=== PATIENT | female | born 1975 ===

== ENCOUNTER 2022-09-07 11:47 | Outpatient (CLI) | payer OTHER, SELFPAY ==
--- NOTE | ~2022-09-07 | MR_ITS ---
EXAMINATION: MR knee LT wo con DATE: 09/07/2022 12:58 INDICATION: Chondromalacia. Left knee pain. TECHNIQUE: Magnetic resonance imaging (MRI) of the left knee was performed without intravenous contra st. Sequences included coronal PD-weighted FSE, coronal PD-weighted FS FSE, sagittal T2-weighted FSE , sagittal PD-weighted FS FSE and axial PD weighted fat saturated FSE. COMPARISON: None. FINDINGS: Medial compartment: Complex tear at the body of the medial meniscus with both a and oblique radial component and longitud inal horizontal component. Likely associated multilobulated para labral cyst measuring 1.6 x 1.4 x 0. 8 cm which extends cephalad along the deep margin of the medial collateral ligament. Partial-thicknes s cartilage loss along the medial tibial plateau and weightbearing medial femoral condyle most severe at the posterior weightbearing medial femoral condyle where it involves greater than 50% the cartila ge thickness and with some underlying subarticular cystlike changes. Lateral compartment: Lateral meniscus is normal. Articular cartilage is normal. Patellofemoral compartment: Articular cartilage is normal. Ligaments and tendons: Anterior and posterior cruciate ligaments are normal. The medial collateral ligament and fibular joshua ateral ligament complex are normal. The extensor mechanism is normal. The visualized medial and later al hamstring tendons as well as the iliotibial band are normal. Fluid: Physiologic amount of fluid in the joint space. No loose osteochondral bodies identified. Osseous/other: Red marrow expansion in the distal metadiaphyseal region of the femur. No fracture or pathologic sarah ow replacing process. IMPRESSION: 1. Complex tear of the body of the medial meniscus with likely associated multilobulated para menisca l cyst. 2. 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 Reviewed, dictated and finalized at location B. IMPRESSION: 1. Complex tear of the body of the medial meniscus with likely associated multi lobulated para meniscal cyst. 2. 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
== END 2022-09-07 11:48 ==
DX: M22.42 Chondromalacia patellae, left knee (principal); S83.232A Complex tear of medial meniscus, current injury, left knee, initial encounter; M17.12 Unilateral primary osteoarthritis, left knee; T14.90XA Injury, unspecified, initial encounter
CPT/HCPCS: 73721